=== PATIENT | male | born 1980 | race Two or more races ===

== ENCOUNTER 2018-11-15 20:25 | Emergency (ER) | payer MEDICAID ==
[~2018-11-15] VITALS: Ht 188 cm; Wt 104.3 kg
[~2018-11-15 20:25] MED LIST: ACET300T4 PO; NAPR-223 PO
[2018-11-15 22:14] LABS: Basophils # (auto) 0 uL; Basophils % (auto) 0.2 % (0.0-2.0); Eosinophils # (auto) 0.1 uL; Eosinophils % (auto) 0.7 % (0.0-7.0); Hematocrit 41.6 % (41.0-53.0); Lymphocytes # (auto) 1.7 uL; Lymphocytes % (auto) 14.3 % (10.0-50.0); Mean Corpuscular Hemoglobin 29.4 pg (28.0-32.0); Mean Corpuscular Hgb Conc. 33.6 g/dL (32.0-36.0); Mean Corpuscular Volume 87.5 fL (80.0-100.0); Monocytes # (auto) 0.9 uL; Monocytes % (auto) 7.9 % (0.0-12.0); Neutrophils # (auto) 9.3 uL; Neutrophils % (auto) 76.9 % (37.0-80.0); Platelet Count (auto) 336 10^3/uL (140-450); Red Blood Cells 4.76 10^6/uL (4.5-5.90); Red Cell Distribution Width 14.2 % (11.8-14.3)
[2018-11-15 22:30] LABS: Chloride 100 mmol/L (98-107); Potassium 3.4 mmol/L (3.5-5.1); Sodium 140 mmol/L (136-145)
[2018-11-15 22:38] LABS: Alanine Aminotransferase 14 U/L (16-61); Albumin 3.1 g/dL (3.4-5.0); Anion Gap 10 (5-15); Aspartate Aminotransferase 4 U/L (15-37); BUN/Creatinine Ratio 6.5; Blood Urea Nitrogen 7 mg/dL (7-18); Calcium 8.2 mg/dL (8.5-10.1); Carbon Dioxide 30 mmol/L (21-32); GFR African American 98 mL/min; GFR Non-African American 81 mL/min; Glucose 98 mg/dL (74-106)
[2018-11-15 22:47] LABS: Alkaline Phosphatase 86 U/L (45-117); Bilirubin, Total 0.5 mg/dL (0.2-1.0); Total Protein 7.7 g/dL (6.4-8.2)
[2018-11-16 07:51] LABS: Urine Bacteria NONE SEEN /hpf (None Seen); Urine Blood Negative /uL (Negative); Urine Mucus MANY (None Seen); Urine Specific Gravity 1.018 (1.001-1.035); Urine WBC 16 /hpf (0 - 3)
[2018-11-16] MEDS: SODIUM CHLORIDE 0.9% 500 ML IV ONE (08:12)
[2018-11-16] MEDS: SODIUM CHLORIDE 0.9% 1,000 ML IV ONE (08:20)
[2018-11-16] MEDS: METOCLOPRAMIDE HCL 5MG/ml INJ 2ml VIAL IV ONE (08:20)
[2018-11-16] MEDS: KETOROLAC TROMETH 15 mg/ml 1ML VL IV ONE (08:20)
[2018-11-16] MEDS: DexAMETHasone SOD PHOS 4 MG/1ML SDV INJ IV ONE (08:20)
[2018-11-16] MEDS: cefTRIAXone 1GM/50ML D5W 50 ML IV ONE (11:34)
[2018-11-16] MEDS: POTASSIUM EFFERVESENT TAB 25 MEQ PO ONE (11:34)
[2018-11-16] MEDS: IOHEXOL 350 MG/ML 100ML IJ ONE (15:25)
[2018-11-16 16:47] VITALS: BP 117/79
== END 2018-11-16 17:00 | disposition home or self-care (01) ==
LOC: ER 20:27
DX: M35.3 Polymyalgia rheumatica (principal); E87.6 Hypokalemia; J18.9 Pneumonia, unspecified organism; E44.1 Mild protein-calorie malnutrition; M10.9 Gout, unspecified; F17.210 Nicotine dependence, cigarettes, uncomplicated; Z68.29 Body mass index [BMI] 29.0-29.9, adult
CPT/HCPCS: 36415; 71046; 71275; 80053; 81001; 83735; 84550; 85025; 85379; 85652; 87040; 96365; 96375; 99284; J0696; J1100; J1885; J2765; J7030; J7040; Q9967

== ENCOUNTER 2020-02-28 18:54 | Emergency (ER) | payer MEDICAID ==
[~2020-02-28] VITALS: Ht 188 cm; Wt 117.9 kg
[2020-02-28 21:13] LABS: Basophils # (auto) 0 10 ^3/uL (0-0.2); Basophils % (auto) 0.2 % (0.0-2.0); Eosinophils # (auto) 0 10 ^3/uL (0-0.8); Eosinophils % (auto) 0.1 % (0.0-7.0); Hematocrit 50.5 % (41.0-53.0); Hemoglobin 17.1 g/dL (13.5-17.5); Lymphocytes # (auto) 2.3 10 ^3/uL (0.4-5.4); Lymphocytes % (auto) 19.3 % (10.0-50.0); Mean Corpuscular Hemoglobin 30.2 pg (28.0-32.0); Mean Corpuscular Hgb Conc. 33.8 g/dL (32.0-36.0); Mean Corpuscular Volume 89.4 fL (80.0-100.0); Monocytes % (auto) 8.4 % (0.0-12.0); Neutrophils # (auto) 8.4 10 ^3/uL (1.6-8.6); Nucleated Red Blood Cells % 0.1 %; Platelet Count (auto) 349 10^3/uL (140-450); Red Blood Cells 5.64 10^6/uL (4.5-5.90); Red Cell Distribution Width 14.8 % (11.8-14.3); White Blood Cell 11.7 10^3/uL (4.4-10.8)
[2020-02-28 21:30] LABS: Anion Gap 12 (5-15); Aspartate Aminotransferase 6 U/L (15-37); BUN/Creatinine Ratio 19.1; Blood Urea Nitrogen 26 mg/dL (7-18); Carbon Dioxide 19 mmol/L (21-32); Chloride 107 mmol/L (98-107); GFR African American 74 mL/min; GFR Non-African American 61 mL/min; Glucose 98 mg/dL (74-106); Sodium 138 mmol/L (136-145)
[2020-02-28 21:31] LABS: Alanine Aminotransferase 20 U/L (16-61); Albumin 4.8 g/dL (3.4-5.0); Amylase 39 U/L (25-115); Calcium 10.1 mg/dL (8.5-10.1); Lipase 191 U/L (73-393)
[2020-02-28 21:35] LABS: Alkaline Phosphatase 79 U/L (45-117); Bilirubin, Total 1.6 mg/dL (0.2-1.0); Total Protein 9.4 g/dL (6.4-8.2)
[2020-02-28] MEDS ORDERED: ONDANSETRON HCL 4 MG/2 ML VIAL ONE (21:56)
[2020-02-28] MEDS ORDERED: ONDANSETRON HCL 4 MG/2 ML VIAL IV ONE ×2 (22:00→22:30)
[2020-02-28 22:04] LABS: Urine WBC None Seen /hpf (0 - 3)
[2020-02-28 22:20] LABS: Urine Bacteria NONE SEEN /hpf (None Seen); Urine Blood Negative /uL (Negative); Urine Hyaline Cast MANY /lpf (0 - 2); Urine Mucus MANY (None Seen); Urine Specific Gravity 1.037 (1.001-1.035)
[2020-02-28] MEDS ORDERED: POTASSIUM CHL 20MEQ/100ML 100 ML IV ONE (22:30)
[2020-02-28] MEDS ORDERED: MORPHINE SULFATE 4 MG/ML SYR/VIAL IV ONE (22:30)
[2020-02-28] MEDS ORDERED: SODIUM CHLORIDE 0.9% 1,000 ML IV ONE ×2 (23:30→23:45)
[2020-02-29] MEDS ORDERED: HYDROmorphone HCL 2 MG/ML VL IV ONE (00:15)
[2020-02-29] MEDS ORDERED: PROMETHAZINE HCL 25 MG/ML 1ML IV ONE (00:15)
[2020-02-29] MEDS ORDERED: SODIUM CHLORIDE 0.9% 1,000 ML IV ONE (00:45)
[2020-02-29 01:01] VITALS: BP 110/56
[2020-02-29 03:44] LABS: Amphetamine Screen, Urine NEGATIVE (NEGATIVE); Barbiturate Scree,Urine NEGATIVE (NEGATIVE); Benzodiazephine Screen, Urine NEGATIVE (NEGATIVE); Cannabinoid Screen, Urine POSITIVE (NEGATIVE); Cocaine Screen, Urine NEGATIVE (NEGATIVE); Opiate Scree,Urine NEGATIVE (NEGATIVE); Phencyclidine Screen, Urine NEGATIVE (NEGATIVE)
== END 2020-02-29 03:25 | disposition home or self-care (01) ==
LOC: ER 18:55
DX: K52.9 Noninfective gastroenteritis and colitis, unspecified (principal)
CPT/HCPCS: 36415; 74176; 76705; 80053; 80307; 80320; 81001; 82150; 82962; 83605; 83690; 84484; 85025; 93005; 96361; 96374; 96375; 99285; J1170; J2270; J2405; J2550; J3480

== ENCOUNTER 2021-09-29 09:14 | Emergency (ER) | payer MEDICAID ==
[~2021-09-29] VITALS: Ht 188 cm; Wt 108.9 kg
[2021-09-29 10:21] VITALS: BP 124/80
[2021-09-29] MEDS ORDERED: methylPREDNISolone SOD SUCC 125 MG/2 ML VL IM ONE (10:30)
[2021-09-29] MEDS ORDERED: KETOROLAC TROMETH 60MG/2ML VIAL IM ONE (10:30)
[2021-09-29] MEDS ORDERED: IBUP800T27 PO (10:32)
[2021-09-29] MEDS ORDERED: PRED20TA2 PO (10:32)
== END 2021-09-29 10:46 | disposition home or self-care (01) ==
LOC: ER 09:14
DX: M10.9 Gout, unspecified (principal); F17.210 Nicotine dependence, cigarettes, uncomplicated
CPT/HCPCS: 36415; 84550; 96372; 99284; J1885; J2930

== ENCOUNTER 2022-01-16 19:21 | Emergency (ER) | payer MEDICAID ==
[~2022-01-16] VITALS: Ht 188 cm; Wt 109.0 kg
[~2022-01-16 19:21] MED LIST changes: +IBUP800T27 PO; +PRED20TA2 PO
[2022-01-16 19:22] VITALS: BP 119/62
[2022-01-16] MEDS ORDERED: methylPREDNISolone SOD SUCC 125 MG/2 ML VL IM ONE (22:45)
[2022-01-16] MEDS ORDERED: KETOROLAC TROMETH 30 MG/ML 1ML VIAL IM ONE (22:45)
[2022-01-16] MEDS ORDERED: COLC0.6T56 PO (22:51)
[2022-01-16] MEDS ORDERED: INDO25CA17 PO (22:51)
== END 2022-01-16 23:29 | disposition home or self-care (01) ==
LOC: ER 19:21
DX: M10.9 Gout, unspecified (principal); F17.210 Nicotine dependence, cigarettes, uncomplicated; Z79.1 Long term (current) use of non-steroidal anti-inflammatories (NSAID); Z79.899 Other long term (current) drug therapy
CPT/HCPCS: 96372; 99284; J1885; J2930

== ENCOUNTER → 2024-02-01 | Outpatient (CLI) | payer MEDICAID ==
[~2024-02-01] MED LIST changes: -ACET300T4 PO; +ACET300T58 PO; +COLC0.6T56 PO; +IBUP-1456 PO; -IBUP800T27 PO; +INDO-34 PO
[2024-02-01 12:31] LABS: Basophils # (auto) 0 10 ^3/uL (0-0.2); Basophils % (auto) 0.7 % (0.0-2.0); Eosinophils # (auto) 0.1 10 ^3/uL (0-0.8); Eosinophils % (auto) 1.5 % (0.0-7.0); Hematocrit 45.7 % (41.0-53.0); Hemoglobin 15.6 g/dL (13.5-17.5); Lymphocytes # (auto) 1.8 10 ^3/uL (0.4-5.4); Lymphocytes % (auto) 31.6 % (10.0-50.0); Mean Corpuscular Hemoglobin 30.4 pg (28.0-32.0); Mean Corpuscular Hgb Conc. 34.2 g/dL (32.0-36.0); Mean Corpuscular Volume 88.9 fL (80.0-100.0); Monocytes # (auto) 0.3 10 ^3/uL (0-1.3); Monocytes % (auto) 5.5 % (0.0-12.0); Neutrophils # (auto) 3.4 10 ^3/uL (1.6-8.6); Neutrophils % (auto) 60.7 % (37.0-80.0); Nucleated Red Blood Cells % 0.1 %; Platelet Count (auto) 235 10^3/uL (140-450); Red Blood Cells 5.14 10^6/uL (4.5-5.90); Red Cell Distribution Width 15.1 % (11.8-14.3); White Blood Cell 5.6 10^3/uL (4.4-10.8)
[2024-02-01 13:03] LABS: Alanine Aminotransferase 14 U/L (7-40); Albumin 4.5 g/dL (3.2-4.8); Alkaline Phosphatase 86 U/L (46-116); Anion Gap 6 (5-15); Aspartate Aminotransferase < 8 U/L (13-40); BUN/Creatinine Ratio 12.5 (10.0-20.0); Blood Urea Nitrogen 10 mg/dL (9-23); Calcium 9.9 mg/dL (8.7-10.4); Carbon Dioxide 27 mmol/L (20-30); Chloride 109 mmol/L (98-107); Cholesterol 174 mg/dL (< 200); Glucose 92 mg/dL (74-106); LDL Cholesterol 120 mg/dL (< 100); Potassium 4.6 mmol/L (3.5-5.1); Sodium 142 mmol/L (136-145); Triglycerides 95 mg/dL (< 150)
[2024-02-01 13:04] LABS: Bilirubin, Total 0.7 mg/dL (0.2-1.0); HDL Cholesterol 46 mg/dL (40-59); Total Protein 7.5 g/dL (5.7-8.2)
[2024-02-01 21:11] LABS: Urine Blood Negative /uL (Negative); Urine Clarity Clear (Clear); Urine Color Yellow (Yellow); Urine Mucus FEW (None Seen); Urine Protein, UAD Negative (Negative); Urine Specific Gravity 1.024 (1.001-1.035); Urine Urobilinogen Normal (Negative); Urine pH 5.5 (5.0-9.0)
== END | disposition home or self-care (01) ==
LOC: LAB 12:08
PROVIDERS: ATTEND Student in an Organized Health Care Education/Training Program
DX: N52.9 Male erectile dysfunction, unspecified (principal); R33.9 Retention of urine, unspecified; R03.0 Elevated blood-pressure reading, without diagnosis of hypertension; R73.9 Hyperglycemia, unspecified
CPT/HCPCS: 36415; 80053; 80061; 81001; 83036; 84153; 84403; 84443; 85025; 87086

== ENCOUNTER 2024-07-13 08:58 | Emergency (ER) | payer MEDICAID ==
[~2024-07-13] VITALS: Ht 188 cm; Wt 111.4 kg
[2024-07-13 09:09] VITALS: BP 160/108; PULSE 82; RESP 16; TEMP 98.9; O2SAT 96
--- NOTE | 2024-07-13 09:27 | ED.PDOC ---
Eye-HPI HPI Comments A 44 YEAR OLD MALE PRESENTS TO THE ED WITH CHIEF COMPLAINT OF SORE THROAT. PATIENT REPORTS THAT HE HAS BEEN EXPERIENCING AN INTERMITTENT SORE THROAT FOR THE 2 WEEKS WITH SOME BLOOD BEING SPIT UP. WHEN EATING, HE C/O DIFFICULTY SWALLOWING. PATIENT DENIES ANY FEVER, CHILLS, COUGH, HEADACHE, DIZZINESS, EAR PAIN, OR N/V. NO OTHER SYMPTOMS REPORTED AT THIS TIME OF CARE. Chief Complaint: Sore Throat Time Seen by MD: 09:25 Primary Care Provider: SUMMER Reviewed Notes: Nurses Notes, Medications, Allergies Allergies: Coded Allergies: NO KNOWN ALLERGIES (Unverified , 09/25/15) Home Meds Active Scripts Lidocaine HCl (Mouth-Throat) (Lidocaine HCl Viscous) 2 % Vielka, 10 ML MT TID, #120 ML Prov:ANA ROWLAND 07/13/24 Penicillin V Potassium (Veetids) 500 Mg Tab, 1 TAB PO QID, #28 TAB Prov:ANA ROWLAND 07/13/24 Colchicine (COLCRYS TABLET) 0.6 Mg Tb, 0.6 MG PO BID PRN, #10 TAB Prov:MATT EDDY 01/16/22 Indomethacin (Indocin) 25 Mg Cp, 1 CAP PO BID PRN, #28 CAP Prov:MATT EDDY 01/16/22 Prednisone (Prednisone) 20 Mg Tab, 2 TAB PO DAILY for 5 Days, #10 MG 0 Refills Prov:ROMULO TOMLINSON 09/29/21 Ibuprofen (Ibuprofen) 800 Mg Tab, 1 TAB PO TID PRN, #30 TAB 0 Refills Prov:ROMULO TOMLINSON 09/29/21 Reported Medications Naproxen (Naprosyn) 500 Mg Tab, 1 TAB PO BID, #60 TAB 1 Refill 09/26/15 Acetaminophen W/ Codeine (Tylenol #4 W/Codeine) 1 Tab Tb, 1 TAB PO 09/26/15 Information Source: Patient Mode of Arrival: Ambulatory Timing: Days Duration: Since onset Prehospital treatment: None Quality: Pain, Red Conjunctiva: Normal Cornea: Normal Pupils: Normal EOM: Normal Fundus: Normal Slit lamp exam: Normal Anterior chamber: Normal Mouth Location: Pharynx Oropharynx: Tonsillar hypertrophy, Red Onset: Spontaneous Throat Exposed to: None History of: None Associated signs and symptoms: Sore Throat Past Medical History PAST MEDICAL HISTORY: Gout Surgical History: Denies all surgeries Family History Family History: No family hx of HTN Social History Smoker: Cigarettes, Less Than 1 Pack/Day Alcohol: Rarely Drugs: Denies Drug Use Lives In: Home Constitutional: denies: chills, diaphoresis, fatigue, fever, malaise, sweats, weakness, others EENTM: reports: throat pain, throat swelling, voice changes; denies: blurred vision, double vision, ear bleeding, ear discharge, ear drainage, ear pain, ear ringing, eye pain, eye redness, hearing loss, mouth pain, mouth swelling, nasal discharge, nose bleeding, nose congestion, nose pain, photophobia, tearing, others Respiratory: denies: cough, hemoptysis, orthopnea, SOB at rest, shortness of breath, SOB with excertion, stridor, wheezing, others Cardiovascular: denies: chest pain, dizzy spells, diaphoresis, Dyspnea on exertion, edema, irregular heart beat, left arm pain, lightheadedness, palpitations, PND, syncope, others Gastrointestinal: denies: abdomen distended, abdominal pain, blood streaked bowels, constipated, diarrhea, dysphagia, difficulty swallowing, hematemesis, melena, nausea, poor appetite, poor fluid intake, rectal bleeding, rectal pain, vomiting, others Genitourinary: denies: burning, dysuria, flank pain, frequency, hematuria, incontinence, penile discharge, penile sore, pain, testicle pain, testicle swelling, urgency, others Neurological: denies: dizziness, fainting, headache, left sided numbness, left sided weakness, numbness, paresthesia, pre-existing deficit, right sided numbness, right sided weakness, seizure, speech problems, tingling, tremors, weakness, others Musculoskeletal: denies: back pain, gout, joint pain, joint swelling, muscle pain, muscle stiffness, neck pain, others Integumetry: denies: bruises, change in color, change in hair/nails, dryness, laceration, lesions, lumps, rash, wounds, others Allergic/Immunocompromised: denies: Difficulty Healing, Frequent Infections, Hives, Itching, others Hematologic/Lymphatic: denies: anemia, blood clots, easy bleeding, easy bruising, swollen glands, others Endocrine: denies: excessive hunger, excessive sweating, excessive thirst, excessive urination, flushing, intolerance to cold, intolerance to heat, unexplained weight gain, unexplained weight loss, others Psychiatric: denies: anxiety, bipolar disorder, depression, hopeless, panic di sorder, schizophrenia, sleepless, suicidal, others All Other Systems: Reviewed and Negative Physical Exam General Appearance: No Apparent Distress, Normal HEENT: PERRL/EOMI, Pharyngeal Erythema (TONSILLAR SWELLING WITH MILD EXUDATES. ), TMs Normal, Tonsillar Exudate Neck: Full Range of Motion, Lymphadenopathy (L), Normal Inspection, Supple Respiratory: Chest Non-Tender, Lungs Clear, No Accessory Muscle Use, No Respiratory Distress, Normal Breath Sounds Cardiovascular: No Edema, No JVD, No Murmur, No Gallop, Normal Peripheral Pulses, Regular Rate/Rhythm Breast Exam: Deferred Gastrointestinal: No Organomegaly, Non Tender, No Pulsatile Mass, Normal Bowel Sounds, Soft Genitalia: Deferred Pelvic: Deferred Rectal: Deferred Extremities: No calf tenderness, Normal capillary refill, Normal inspection, Normal range of motion, Non-tender, No pedal edema Musculoskeletal : Apperance: Normal Neurologic: Alert, mannequin decorator II-XII nml as Tested, No Motor Deficits, Normal Affect, Normal Mood, No Sensory Deficits Cerebellar Function: Normal Reflexes: Normal Skin: Dry, Normal Color, Warm Peripheral Pulses: 2+ carotid (R), 2+ carotid (L) Lymphatic: Cervical Adenopathy (L) Was a procedure done? Was a procedure done?: No EENT DIFF Eye: N/A Ear: Otitis Media, Pharyngitis, N/A Nose: N/A Mouth: N/A Sore Throat: Pharyngitis, Streptococcal, Viral Pharyngitis X-Ray, Labs, Meds, VS Vital Signs Date Time Temp Pulse Resp B/P (MAP) Pulse Ox O2 Delivery O2 Flow Rate FiO2 07/13/24 09:09 82 16 96 Room Air 07/13/24 09:09 98.9 82 16 160/108 (125) 96 98.9 07/13/24 09:08 98.9 82 16 160/108 (125) 96 Lab Test 07/13/24 09:30 Range/Units Group A Streptococcus Rapid Positive Current Medications Medications (Trade) Dose Ordered Sig/Meliza Route Start Time Stop Time Status Last Admin Methylprednisolone Sodium Succinate (Solu Medrol) 125 mg ONCE ONCE IM 07/13/24 09:30 07/13/24 09:31 DC 07/13/24 09:44 Ceftriaxone Sodium (Rocephin) 1,000 mg ONCE ONCE IM 07/13/24 09:30 07/13/24 09:31 DC 07/13/24 09:44 X-Ray, Labs, Meds, VS Comment EXTERNAL MEDICAL RECORDS REVIEWED: [NONE] INDEPENDENT HISTORIANS: SOCIAL DETERMINANTS OF HEALTH: [NONE] LABS ORDERED: STREP SWAB: POSITIVE STREP REVIEWED AND INTERPRETED RESULTS: NONE IMAGING ORDERED: NONE TREATMENTS ORDERED: ROCEPHIN 1G IM, SOLU-MEDROL 125MG IM PROCEDURES PERFORMED: NONE CRITICAL CARE TIME: NONE I HAVE DISCUSSED THE PATIENT WITH THE ATTENDING PHYSICIAN DR. VALDOVINOS AND HE AGREES WITH THE PATIENT'S PLAN OF CARE AND DISPOSITION. BASED ON HISTORY OF PRESENT ILLNESS, AND PHYSICAL EXAM, PATIENT WILL BE DISCHARGED HOME. DISCUSSED PLAN FOR DISCHARGE HOME WITH RX. MEDICATION WARNINGS GIVEN. SHARED DECISION MAKING: DISCUSSED WITH PATIENT THAT THEIR WORKUP WAS NORMAL. PATIENT INSTRUCTED TO FOLLOW UP WITH PRIMARY CARE PROVIDER IN 1-2 DAYS FOR RE- EVALUATION OF SYMPTOMS. PATIENT VERBALIZES UNDERSTANDING TO RETURN TO ED FOR NEW OR WORSENING SYMPTOMS OR IF FOLLOW UP WITH PCP CANNOT BE OBTAINED. PATIENT FEELS COMFORTABLE GOING HOME AT THIS TIME. ALL QUESTIONS ADDRESSED AT TIME OF DISCHARGE. Time of 1ST Reevaluation: 10:24 Reevaluation 1ST: Improved Patient Education/Counseling: Diagnosis, Treatment, Need For Follow Up Family Education/Counseling: Diagnosis, Treatment, Need For Follow Up Medical Screening: No EMC Exist At This Time Departure 1 Departure Time of Disposition: 10:25 Impression: Primary Impression: Acute streptococcal tonsillitis Qualified Codes: J03.00 - Acute streptococcal tonsillitis, unspecified Disposition: HOME / SELF CARE / HOMELESS Condition: Stable Additional Instructions: FOLLOW-UP WITH PCP IN 1 TO 2 DAYS. TAKE MEDICATIONS PRESCRIBED. RETURN TO ED FOR ANY NEW OR WORSENING SYMPTOMS. e-Prescriptions Lidocaine HCl (Mouth-Throat) (Lidocaine HCl Viscous) 2 % Vielka 10 ML MT TID, #120 ML Prov: ANA ROWLAND 07/13/24 Penicillin V Potassium (Veetids) 500 Mg Tab 1 TAB PO QID, #28 TAB Prov: ANA ROWLAND 07/13/24 Discharged With: Self, Spouse Critical Care Note Critical Care Time?: No Stability Stability form required: No Heart Score Heart Score: Heart Score Response (Comments) Value History N/A 0 EKG N/A 0 Age N/A 0 Risk Factors N/A 0 Troponin N/A 0 Total 0 I personally scribed for AAN ROWLAND ([email or web address]) on 07/13/24 at 09:27. Electronically submitted by John Pond ([email or web address]). I personally scribed for ANA ROWLAND ([email or web address]) on 07/13/24 at 10:23. Electronically submitted by John Pond ([email or web address]). ANA ROWLAND Jul 13, 2024 09:27
[2024-07-13] MEDS: methylPREDNISolone SOD SUCC 125 MG/2 ML VL IM ONE (09:44)
[2024-07-13] MEDS: cefTRIAXone SOD 1,000 MG VL IM ONE (09:44)
[2024-07-13 10:20] LABS: Rapid Strep A Screen-Throat Positive
[2024-07-13] MEDS ORDERED: PENI500T2 PO (10:24)
[2024-07-13] MEDS ORDERED: LIDO2SOL26 MT (10:24)
== END 2024-07-13 10:26 | disposition home or self-care (01) ==
LOC: ER 08:58
DX: J03.00 Acute streptococcal tonsillitis, unspecified (principal); M10.9 Gout, unspecified; F17.210 Nicotine dependence, cigarettes, uncomplicated; Z79.52 Long term (current) use of systemic steroids; Z79.1 Long term (current) use of non-steroidal anti-inflammatories (NSAID); Z79.2 Long term (current) use of antibiotics; Z79.899 Other long term (current) drug therapy
CPT/HCPCS: 87880; 96372; 99284; J0696; J2919

== ENCOUNTER 2024-11-30 10:57 | Outpatient (CLI) | payer MEDICAID ==
[~2024-11-30 10:57] MED LIST changes: +LIDO2SOL26 MT; +PENI500T2 PO
[2024-11-30 11:41] LABS: Hematocrit 48.3 % (41.0-53.0); Hemoglobin 16.4 g/dL (13.5-17.5); Mean Corpuscular Hemoglobin 30.3 pg (28.0-32.0); Mean Corpuscular Volume 88.9 fL (80.0-100.0); Nucleated Red Blood Cells % 0.0 %
[2024-11-30 11:55] LABS: Alanine Aminotransferase 16 U/L (7-40); Alkaline Phosphatase 92 U/L (46-116); Anion Gap 8 (5-15); BUN/Creatinine Ratio 10.4 (10.0-20.0); Blood Urea Nitrogen 10 mg/dL (9-23); Calcium 10.5 mg/dL (8.7-10.4); Carbon Dioxide 27 mmol/L (20-31); Chloride 106 mmol/L (98-107); Glucose 94 mg/dL (74-106); Potassium 5.0 mmol/L (3.5-5.1); Sodium 141 mmol/L (136-145); Total Protein 7.8 g/dL (5.7-8.2); Triglycerides 159 mg/dL (< 150)
[2024-11-30 11:56] LABS: Albumin 4.7 g/dL (3.2-4.8); Bilirubin, Total 0.7 mg/dL (0.2-1.0); HDL Cholesterol 41 mg/dL (40-59)
[2024-11-30 11:57] LABS: Cholesterol 215 mg/dL (< 200)
== END 2024-11-30 17:00 | disposition home or self-care (01) ==
LOC: LAB 10:57
PROVIDERS: ATTEND Student in an Organized Health Care Education/Training Program
DX: E55.9 Vitamin D deficiency, unspecified (principal); E78.5 Hyperlipidemia, unspecified; R73.9 Hyperglycemia, unspecified; R03.0 Elevated blood-pressure reading, without diagnosis of hypertension
CPT/HCPCS: 36415; 80053; 80061; 82306; 83036; 84443; 85025

== ENCOUNTER 2024-12-26 10:37 | Emergency (ER) | payer MEDICAID ==
[~2024-12-26] VITALS: Ht 188 cm; Wt 109.0 kg
[2024-12-26 10:39] VITALS: TEMP 97.2
--- NOTE | 2024-12-26 10:53 | ED.PDOC ---
GI ASSESSMENT HPI Comments 44 y/o M, with no prior medical history presents to the ED for CC of abdominal pain. Patient states, he has been experiencing diffuse abdominal pain with associated symptoms of nausea, vomiting, and diarrhea sudden onset, Wednesday (12/23/24). Patient denies melena, fever, chills, weakness, or fatigue. No other symptoms or modifying factors present at this time. Chief Complaint: Abdominal Pain Time Seen by MD: 10:55 Primary Care Provider: SUMMER Reviewed Notes: Nurses Notes, Medications, Allergies Allergies: Coded Allergies: NO KNOWN ALLERGIES (Unverified , 09/25/15) Home Meds Active Scripts Lidocaine HCl (Mouth-Throat) (Lidocaine HCl Viscous) 2 % Vielka, 10 ML MT TID, #120 ML Prov:ANA ROWLAND 07/13/24 Penicillin V Potassium (Veetids) 500 Mg Tab, 1 TAB PO QID, #28 TAB Prov:ANA ROWLAND 07/13/24 Colchicine (COLCRYS TABLET) 0.6 Mg Tb, 0.6 MG PO BID PRN, #10 TAB Prov:MATT EDDY 01/16/22 Indomethacin (Indocin) 25 Mg Cp, 1 CAP PO BID PRN, #28 CAP Prov:MATT EDDY 01/16/22 Prednisone (Prednisone) 20 Mg Tab, 2 TAB PO DAILY for 5 Days, #10 MG 0 Refills Prov:ROMULO TOMLINSON 09/29/21 Ibuprofen (Ibuprofen) 800 Mg Tab, 1 TAB PO TID PRN, #30 TAB 0 Refills Prov:ROMULO TOMLINSON 09/29/21 Reported Medications Naproxen (Naprosyn) 500 Mg Tab, 1 TAB PO BID, #60 TAB 1 Refill 09/26/15 Acetaminophen W/ Codeine (Tylenol #4 W/Codeine) 1 Tab Tb, 1 TAB PO 09/26/15 Information Source: Patient Mode of Arrival: Ambulatory Timing: Days Duration: Since onset Prehospital treatment: None Vomitus: Watery Stool: Watery Severity: Moderate Recent: None Recent Hx of: None Pain Location: Diffuse Modifying Factors: Nothing Associated sign and symptoms: Nausea, Vomiting, Diarrhea, Abdominal Pain Past Medical History PAST MEDICAL HISTORY: Gout Surgical History: Denies all surgeries Family History Family History: No family hx of HTN Social History Smoker: Cigarettes, Less Than 1 Pack/Day Alcohol: Rarely Drugs: Denies Drug Use Lives In: Home Constitutional: denies: chills, diaphoresis, fatigue, fever, malaise, sweats, weakness, others EENTM: denies: blurred vision, double vision, ear bleeding, ear discharge, ear drainage, ear pain, ear ringing, eye pain, eye redness, hearing loss, mouth pain, mouth swelling, nasal discharge, nose bleeding, nose congestion, nose pain, photophobia, tearing, throat pain, throat swelling, voice changes, others Respiratory: denies: cough, hemoptysis, orthopnea, SOB at rest, shortness of breath, SOB with excertion, stridor, wheezing, others Cardiovascular: denies: chest pain, dizzy spells, diaphoresis, Dyspnea on exertion, edema, irregular heart beat, left arm pain, lightheadedness, palpitations, PND, syncope, others Gastrointestinal: reports: abdominal pain, diarrhea, nausea, vomiting; denies: abdomen distended, blood streaked bowels, constipated, dysphagia, difficulty swallowing, hematemesis, melena, poor appetite, poor fluid intake, rectal bleeding, rectal pain, others Genitourinary: denies: burning, dysuria, flank pain, frequency, hematuria, incontinence, penile discharge, penile sore, pain, testicle pain, testicle swelling, urgency, others Neurological: denies: dizziness, fainting, headache, left sided numbness, left sided weakness, numbness, paresthesia, pre-existing deficit, right sided numbness, right sided weakness, seizure, speech problems, tingling, tremors, weakness, others Musculoskeletal: denies: back pain, gout, joint pain, joint swelling, muscle pain, muscle stiffness, neck pain, others Integumetry: denies: bruises, change in color, change in hair/nails, dryness, laceration, lesions, lumps, rash, wounds, others Allergic/Immunocompromised: denies: Difficulty Healing, Frequent Infections, Hives, Itching, others Hematologic/Lymphatic: denies: anemia, blood clots, easy bleeding, easy bruising, swollen glands, others Endocrine: denies: excessive hunger, excessive sweating, excessive thirst, excessive urination, flushing, intolerance to cold, intolerance to heat, unexpl ained weight gain, unexplained weight loss, others Psychiatric: denies: anxiety, bipolar disorder, depression, hopeless, panic disorder, schizophrenia, sleepless, suicidal, others All Other Systems: Reviewed and Negative Physical Exam General Appearance: Moderate Distress HEENT: Normal ENT Inspection, Pharynx Normal, TMs Normal Neck: Full Range of Motion, Non-Tender, Normal, Normal Inspection Respiratory: Chest Non-Tender, Lungs Clear, No Accessory Muscle Use, No Respiratory Distress, Normal Breath Sounds Cardiovascular: No Edema, No JVD, No Murmur, No Gallop, Normal Peripheral Pulses, Regular Rate/Rhythm Breast Exam: Deferred Gastrointestinal: No Organomegaly, Non Tender, No Pulsatile Mass, Normal Bowel Sounds, Soft Genitalia: Deferred Pelvic: Deferred Rectal: Deferred Extremities: No calf tenderness, Normal capillary refill, Normal inspection, Normal range of motion, Non-tender, No pedal edema Musculoskeletal : Apperance: Normal Neurologic: Alert, woods warden II-XII nml as Tested, No Motor Deficits, Normal Affect, Normal Mood, No Sensory Deficits Cerebellar Function: Normal Reflexes: Normal Skin: Dry, Normal Color, Warm Peripheral Pulses: 3+ Radial (R), 3+ Radial (L) Lymphatic: No Adenopathy Was a procedure done? Was a procedure done?: No GI differential Dx Differential Diagnosis: Constipation, Diverticular disease, Esophagitis, Gastritis/PUD, Gastroenteritis, Electrolyte Imbalance, Food Poisoning, Bacterial, Viral X-Ray, Labs, Meds, VS Vital Signs Date Time Temp Pulse Resp B/P (MAP) Pulse Ox O2 Delivery O2 Flow Rate FiO2 12/26/24 13:12 67 19 160/108 12/26/24 11:32 69 18 98 Room Air 12/26/24 11:32 69 18 165/110 (128) 98 12/26/24 11:26 67 19 165/110 12/26/24 10:39 97.2 106 18 124/73 96 97.2 Lab Test 12/26/24 11:11 Range/Units White Blood Count 8.5 4.4-10.8 10^3/uL Red Blood Count 5.41 4.5-5.90 10^6/uL Hemoglobin 16.4 13.5-17.5 g/dL Hematocrit 47.6 41.0-53.0 % Mean Corpuscular Volume 88.0 80.0-100.0 fL Mean Corpuscular Hemoglobin 30.4 28.0-32.0 pg Mean Corpuscular Hemoglobin Concent 34.5 32.0-36.0 g/dL Red Cell Distribution Width 15.2 H 11.8-14.3 % Platelet Count 260 140-450 10^3/uL Mean Platelet Volume 7.9 6.9-10.8 fL Neutrophils (%) (Auto) 79.5 37.0-80.0 % Lymphocytes (%) (Auto) 15.9 10.0-50.0 % Monocytes (%) (Auto) 3.6 0.0-12.0 % Eosinophils (%) (Auto) 0.5 0.0-7.0 % Basophils (%) (Auto) 0.5 0.0-2.0 % Neutrophils # (Auto) 6.8 1.6-8.6 10 ^3/uL Lymphocytes # (Auto) 1.4 0.4-5.4 10 ^3/uL Monocytes # (Auto) 0.3 0-1.3 10 ^3/uL Eosinophils # (Auto) 0 0-0.8 10 ^3/uL Basophils # (Auto) 0 0-0.2 10 ^3/uL Nucleated Red Blood Cells 0.2 % Sodium Level 142 136-145 mmol/L Potassium Level 4.9 3.5-5.1 mmol/L Chloride Level 108 H 98-107 mmol/L Carbon Dioxide Level 24 20-31 mmol/L Anion Gap 10 5-15 Blood Urea Nitrogen 8 L 9-23 mg/dL Creatinine 0.99 0.700-1.30 mg/dL Glomerular Filtration Rate Calc 96 >90 mL/min BUN/Creatinine Ratio 8.1 L 10.0-20.0 Serum Glucose 113 H 74-106 mg/dL Calcium Level 10.3 8.7-10.4 mg/dL Current Medications Medications (Trade) Dose Ordered Sig/Meliza Route Start Time Stop Time Status Last Admin Ondansetron HCl (Zofran) 4 mg ONCE ONCE IV 12/26/24 11:00 12/26/24 11:02 DC 12/26/24 11:27 Hydromorphone HCl (Dilaudid Injection) 1 mg ONCE ONCE IV 12/26/24 11:00 12/26/24 11:02 DC 12/26/24 11:26 Prochlorperazine Edisylate (Compazine Inj) 10 mg ONCE ONCE IV 12/26/24 11:00 12/26/24 11:02 DC 12/26/24 11:[address] [address] Ph: [phone] DIAGNOSTIC IMAGING Diagnostic Imaging Report : [id number] Signed PATIENT: SHIRLEY JEAN ACCT: [id number] UNIT: [id number] : 1980 LOC: ER ROOM / BED: / AGE / SEX: 44 / M ADM STATUS: REG ER SERVICE 1100 ORDERING PHYSICIAN: JEANINE VALDOVINOS MD PROCEDURE(s): ABPL - CT AB PEL WO CON-NO ORAL OR IV REASON: enteritis ORDER NUMBER(s): [id number], ACCESSION NUMBER(s): [id number] EXAM: CT CT AB PEL WO CON-NO ORAL OR IV HISTORY: enteritis COMPARISON: CT ABD PELVIS WO CONTRAST on DOS: 02/28/20 TECHNIQUE: Helical CT images of the abdomen and pelvis were performed without IV contrast. Sagittal and coronal reformatted images were obtained. This CT exam was performed using one or more of the following dose reduction techniques: Automated exposure control, adjustment of the mA and/or kv according to patient size, or the use of iterative reconstruction techniques. Radiation Dose: Abdomen/Pelvis: CTDIvol 20.53 mGy, DLP 1315.92 mGy*cm. FINDINGS: CT abdomen: There is mild scarring or atelectasis in the lung bases. There is peribronchial thickening in the lung bases. The right hemidiaphragm is elevated.. The heart is not enlarged. The spleen measures 13.7 cm longitudinal. The noncontrast liver, gallbladder, pancreas, kidneys, and adrenal glands are unremarkable. No abdominal aortic aneurysm. There is a left upper quadrant splenule. There is a small fatty umbilical hernia. CT pelvis: No abnormal bowel dilatation, free air, or free fluid. The appendix and urinary bladder are unremarkable. The prostate is mildly enlarged. There are small fatty bilateral inguinal indirect hernias. There is severe lumbar degenerative disc disease and facet arthropathy. IMPRESSION: 1. Splenomegaly. 2. Mild prostatic enlargement. 3. Fatty umbilical hernia and bilateral fatty inguinal indirect hernias. 4. Advanced lumbar degenerative disc disease and facet arthropathy. Consider follow-up noncontrast MRI of the lumbar spine for better characterization on an outpatient nonemergent basis. 5. No evidence of bowel obstruction, acute appendicitis, or other acute process in the abdomen or pelvis. ATED BY: RASHAUN RIZZO MD DICTATED DATE/TIME: 12/26/24 1206 SIGNED BY: RASHAUN RIZZO MD SIGNED DATE/TIME: 12/26/24 1206 CC: Patient alert. Complaining of abdominal discomfort. Vitals stable. Answering all questions. No sign of distress. CT of the abdomen reviewed does not show any acute process. WBC within normal limits. Hemoglobin within normal limits. Explained to the patient. Continue monitoring. Time of 1ST Reevaluation: 11:25 Reevaluation 1ST: Unchanged Patient Education/Counseling: Diagnosis, Treatment Family Education/Counseling: No Family Present SEPSIS Sepsis Screen Date sepsis recognized/suspect: Dec 26, 2024 Time Sepsis recognized/suspect: 1042 Recent Procedure: No On Antibiotic Therapy: No Respiratory Rate >20: No Heart Rate >90: Yes Temp<36 C (96.8 F) or >38.3 C: No SBP <90 or MAP <65 mmHG: No New Acute Mental Status Change: No Is the patient on CPAP, BIPAP,: No Physician Orders Ct Ab Pel Wo Con-No Oral Or Iv (12/26/24 11:00) Vital Signs Date Time Temp Pulse Resp B/P (MAP) Pulse Ox O2 Delivery O2 Flow Rate FiO2 12/26/24 13:12 67 19 160/108 12/26/24 11:32 69 18 98 Room Air 12/26/24 11:32 69 18 165/110 (128) 98 12/26/24 11:26 67 19 165/110 12/26/24 10:39 97.2 106 18 124/73 96 97.2 Laboratory Tests Test 12/26/24 11:11 White Blood Count 8.5 10^3/uL (4.4-10.8) Medications Medications Dose Ordered Sig/Meliza Route Start Time Stop Time Status Last Admin Dose Admin Hydromorphone HCl 1 mg ONCE ONCE IV 12/26/24 11:00 12/26/24 11:02 DC 12/26/24 11:26 Ondansetron HCl 4 mg ONCE ONCE IV 12/26/24 11:00 12/26/24 11:02 DC 12/26/24 11:27 Prochlorperazine Edisylate 10 mg ONCE ONCE IV 12/26/24 11:00 12/26/24 11:02 DC 12/26/24 11:26 Departure 1 Departure Time of Disposition: 18:06 Impression: Primary Impression: Intractable abdominal pain Disposition: ADMITTED INPATIENT Admit to: Med Surg Condition: Guarded Critical Care Note Critical Care Time?: No Stability Stability form required: No Heart Score Heart Score: Heart Score Response (Comments) Value History N/A 0 EKG N/A 0 Age N/A 0 Risk Factors N/A 0 Troponin N/A 0 Total 0 I personally scribed for JEANINE VALDOVINOS MD ([email or web address]) on 12/26/24 at 10:53. Electronically submitted by Shawanda Reeves ([email or web address]). I personally scribed for JEANINE VALDOVINOS MD ([email or web address]) on 12/26/24 at 11:15. Electronically submitted by Shawanda Reeves ([email or web address]). I personally scribed for JEANINE VALDOVINOS MD ([email or web address]) on 12/26/24 at 12:43. Electronically submitted by Shawanda Reeves ([email or web address]). JEANINE VALDOVINOS MD Dec 26, 2024 10:53
[2024-12-26 11:21] LABS: Hematocrit 47.6 % (41.0-53.0); Hemoglobin 16.4 g/dL (13.5-17.5); Mean Corpuscular Hemoglobin 30.4 pg (28.0-32.0); Mean Corpuscular Volume 88.0 fL (80.0-100.0); Nucleated Red Blood Cells % 0.2 %
[2024-12-26] MEDS: HYDROmorphone HCL 2 MG/ML VL/or syr IV ONE (11:26)
[2024-12-26] MEDS: PROCHLORPERAZINE EDISYLATE 5 MG/ML 2ML VIAL IV ONE (11:26)
[2024-12-26] MEDS: ONDANSETRON HCL 4 MG/2 ML VIAL IV ONE (11:27)
[2024-12-26 11:28] LABS: Potassium 4.9 mmol/L (3.5-5.1); Sodium 142 mmol/L (136-145)
[2024-12-26 11:29] LABS: Anion Gap 10 (5-15); Carbon Dioxide 24 mmol/L (20-31)
[2024-12-26 11:30] LABS: Calcium 10.3 mg/dL (8.7-10.4); Chloride 108 mmol/L (98-107)
[2024-12-26 11:32] VITALS: O2SAT 98
[2024-12-26 11:35] LABS: BUN/Creatinine Ratio 8.1 (10.0-20.0)
[2024-12-26 11:38] LABS: Blood Urea Nitrogen 8 mg/dL (9-23); Glucose 113 mg/dL (74-106)
--- NOTE | 2024-12-26 12:08 | DVH ---
EXAM: CT CT AB PEL WO CON-NO ORAL OR IV HISTORY: enteritis COMPARISON: CT ABD PELVIS WO CONTRAST on DOS: 02/28/20 TECHNIQUE: Helical CT images of the abdomen and pelvis were performed without IV contrast. Sagittal a nd coronal reformatted images were obtained. This CT exam was performed using one or more of the foll owing dose reduction techniques: Automated exposure control, adjustment of the mA and/or kv according to patient size, or the use of iterative reconstruction techniques. Radiation Dose: Abdomen/Pelvis: CTDIvol 20.53 mGy, DLP 1315.92 mGy*cm. FINDINGS: CT abdomen: There is mild scarring or atelectasis in the lung bases. There is peribronchial thickenin g in the lung bases. The right hemidiaphragm is elevated.. The heart is not enlarged. The spleen renae ures 13.7 cm longitudinal. The noncontrast liver, gallbladder, pancreas, kidneys, and adrenal glands are unremarkable. No abdominal aortic aneurysm. There is a left upper quadrant splenule. There is a s mall fatty umbilical hernia. CT pelvis: No abnormal bowel dilatation, free air, or free fluid. The appendix and urinary bladder ar e unremarkable. The prostate is mildly enlarged. There are small fatty bilateral inguinal indirect he rnias. There is severe lumbar degenerative disc disease and facet arthropathy. IMPRESSION: 1. Splenomegaly. 2. Mild prostatic enlargement. 3. Fatty umbilical hernia and bilateral fatty inguinal indirect hernias. 4. Advanced lumbar degenerative disc disease and facet arthropathy. Consider follow-up noncontrast M RI of the lumbar spine for better characterization on an outpatient nonemergent basis. 5. No evidence of bowel obstruction, acute appendicitis, or other acute process in the abdomen or pel vis.
[2024-12-26 13:12] VITALS: BP 160/108; PULSE 67; RESP 19
== END 2024-12-26 13:28 | disposition left against medical advice (07) ==
LOC: EEVIPCON 10:37 → ER 10:37
DX: R10.84 Generalized abdominal pain (principal); R11.2 Nausea with vomiting, unspecified; F17.210 Nicotine dependence, cigarettes, uncomplicated; Z79.899 Other long term (current) drug therapy
CPT/HCPCS: 36415; 74176; 80048; 85025; 96374; 96375; 99285; J0780; J1171; J2405

== ENCOUNTER 2025-04-02 13:58 | Emergency (ER) | payer MEDICAID ==
[~2025-04-02] VITALS: Ht 177.8 cm; Wt 102.7 kg
--- NOTE | 2025-04-02 14:27 | ED.PDOC ---
Eye-HPI HPI Comments This is a 45 year old male presenting to the ED with chief complaint of ear pain. Patient reports that he has been experiencing left sided ear pain for the past few days after swimming recently. Patient relays that he is able to easily get ear infections after swimming. Denies blunt trauma (hand blow to the ear, fall, direct hit) Denies penetrating trauma (Q-tip use, match-stick, gunshot wound, welding spark) Denies ear trauma Denies barotrauma Denies blast injury Denies air travel Denies scuba diving Denies hearing loss Denies persistent ringing in the ear Denies fever chills night sweats unintentional weight loss Denies nausea vomiting severe headache or recent vision changes Chief Complaint: Earache Time Seen by MD: 14:26 Primary Care Provider: SUMMER Reviewed Notes: Nurses Notes, Medications, Allergies Allergies: Coded Allergies: NO KNOWN ALLERGIES (Unverified , 09/25/15) Home Meds Active Scripts Amoxicillin & Pot Clavulanate (AUGMENTIN TABLET) 875 Mg Tb, 875 MG PO BID for 7 Days, #14 TAB 0 Refills Prov:RIAT CLEMENS CLAIMS ADJUSTOR 04/02/25 Lidocaine HCl (Mouth-Throat) (Lidocaine HCl Viscous) 2 % Vielka, 10 ML MT TID, #120 ML Prov:ANA ROWLAND 07/13/24 Penicillin V Potassium (Veetids) 500 Mg Tab, 1 TAB PO QID, #28 TAB Prov:ANA ROWLAND 07/13/24 Colchicine (COLCRYS TABLET) 0.6 Mg Tb, 0.6 MG PO BID PRN, #10 TAB Prov:MATT MAI 01/16/22 Indomethacin (Indocin) 25 Mg Cp, 1 CAP PO BID PRN, #28 CAP Prov:MATT MAI 01/16/22 Prednisone (Prednisone) 20 Mg Tab, 2 TAB PO DAILY for 5 Days, #10 MG 0 Refills Prov:ROMULO TOMLINSON 09/29/21 Ibuprofen (Ibuprofen) 800 Mg Tab, 1 TAB PO TID PRN, #30 TAB 0 Refills Prov:ROMULO TOMLINSON 09/29/21 Reported Medications Naproxen (Naprosyn) 500 Mg Tab, 1 TAB PO BID, #60 TAB 1 Refill 09/26/15 Acetaminophen W/ Codeine (Tylenol #4 W/Codeine) 1 Tab Tb, 1 TAB PO 09/26/15 Information Source: Patient Mode of Arrival: Ambulatory Timing: Days Duration: Since onset Prehospital treatment: None Quality: Pain ENT Ear Exam: Cerumen Onset: Swimming Throat Exposed to: None History of: None Associated signs and symptoms: Ear Pain Past Medical History PAST MEDICAL HISTORY: Gout Surgical History: Denies all surgeries Family History Family History: Reviewed,noncontributory to illness, No family hx of HTN Social History Smoker: Cigarettes, Less Than 1 Pack/Day Alcohol: Rarely Drugs: Denies Drug Use Lives In: Home Constitutional: denies: chills, diaphoresis, fatigue, fever, malaise, sweats, weakness, others EENTM: reports: ear pain; denies: blurred vision, double vision, ear bleeding, ear discharge, ear drainage, ear ringing, eye pain, eye redness, hearing loss, mouth pain, mouth swelling, nasal discharge, nose bleeding, nose congestion, nose pain, photophobia, tearing, throat pain, throat swelling, voice changes, others Respiratory: denies: cough, hemoptysis, orthopnea, SOB at rest, shortness of breath, SOB with excertion, stridor, wheezing, others Cardiovascular: denies: chest pain, dizzy spells, diaphoresis, Dyspnea on exertion, edema, irregular heart beat, left arm pain, lightheadedness, palpitations, PND, syncope, others Gastrointestinal: denies: abdomen distended, abdominal pain, blood streaked bowels, constipated, diarrhea, dysphagia, difficulty swallowing, hematemesis, melena, nausea, poor appetite, poor fluid intake, rectal bleeding, rectal pain, vomiting, others Genitourinary: denies: burning, dysuria, flank pain, frequency, hematuria, incontinence, penile discharge, penile sore, pain, testicle pain, testicle swelling, urgency, others Neurological: denies: dizziness, fainting, headache, left sided numbness, left sided weakness, numbness, paresthesia, pre-existing deficit, right sided numbness, right sided weakness, seizure, speech problems, tingling, tremors, weakness, others Musculoskeletal: denies: back pain, gout, joint pain, joint swelling, muscle pain, muscle stiffness, neck pain, others Integumetry: denies: bruises, change in color, change in hair/nails, dryness, laceration, lesions, lumps, rash, wounds, others Allergic/Immunocompromised: denies: Difficulty Healing, Frequent Infections, Hives, Itching, others Hematologic/Lymphatic: denies: anemia, blood clots, easy bleeding, easy bruising, swollen glands, others Endocrine: denies: excessive hunger, excessive sweating, excessive thirst, excessive urination, flushing, intolerance to cold, intolerance to heat, unexplained weight gain, unexplained weight loss, others Psychiatric: denies: anxiety, bipolar disorder, depression, hopeless, panic di sorder, schizophrenia, sleepless, suicidal, others All Other Systems: Reviewed and Negative Physical Exam General Appearance: No Apparent Distress, Normal HEENT: Normal ENT Inspection, Pharynx Normal, TMs Normal Neck: Full Range of Motion, Non-Tender, Normal, Normal Inspection Respiratory: Chest Non-Tender, Lungs Clear, No Accessory Muscle Use, No Respiratory Distress, Normal Breath Sounds Cardiovascular: No Edema, No JVD, No Murmur, No Gallop, Normal Peripheral Pulses, Regular Rate/Rhythm Breast Exam: Deferred Gastrointestinal: No Organomegaly, Non Tender, No Pulsatile Mass, Normal Bowel Sounds, Soft Genitalia: Deferred Pelvic: Deferred Rectal: Deferred Extremities: No calf tenderness, Normal capillary refill, Normal inspection, Normal range of motion, Non-tender, No pedal edema Musculoskeletal : Apperance: Normal Neurologic: Alert, jammer hooker II-XII nml as Tested, No Motor Deficits, Normal Affect, Normal Mood, No Sensory Deficits Cerebellar Function: Normal Reflexes: Normal Skin: Dry, Normal Color, Warm Lymphatic: No Adenopathy Was a procedure done? Was a procedure done?: Yes Sedation Sedation?: No Other Procedure Procedure Ear lavage Indication Left ear pain and cerumen impaction Prep Saline Informed consent obtained: Yes Risks, benefits, and alternati: Yes EENT DIFF Eye: N/A Ear: Cerumen Impaction, Otitis Media X-Ray, Labs, Meds, VS Vital Signs Date Time Temp Pulse Resp B/P (MAP) Pulse Ox O2 Delivery O2 Flow Rate FiO2 04/02/25 16:00 98.2 86 16 126/92 (103) 100 98.2 04/02/25 16:00 86 17 100 Room Air 04/02/25 14:00 98.7 97 18 146/97 100 98.7 X-Ray, Labs, Meds, VS Comment Patient arrives alert and oriented, ABC's intact, afebrile, vital signs stable, saturating well in room air Exam findings consistent with impacted cerumen Risk and benefits were discussed with the pt including tympanic membrane perforation, hearing loss, otitis externa, vertigo, and minor canal abrasion if wax is adherent to the epithelium Verbally consented to the procedure Wax was removed with ear lavage system. Patient tolerated procedure well On reevaluation of ear, partial cerumen remained in canal. Advised to used OTC debrox and f/u in 1 wk SRP discussed Time of 1ST Reevaluation: 15:00 Reevaluation 1ST: Improved Patient Education/Counseling: Diagnosis, Treatment Family Education/Counseling: Diagnosis, Treatment SEPSIS Sepsis Screen Date sepsis recognized/suspect: Apr 02, 2025 Time Sepsis recognized/suspect: 1400 Recent Procedure: No On Antibiotic Therapy: No Respiratory Rate >20: No Heart Rate >90: No Temp<36 C (96.8 F) or >38.3 C: No SBP <90 or MAP <65 mmHG: No New Acute Mental Status Change: No Is the patient on CPAP, BIPAP,: No Vital Signs Date Time Temp Pulse Resp B/P (MAP) Pulse Ox O2 Delivery O2 Flow Rate FiO2 04/02/25 16:00 98.2 86 16 126/92 (103) 100 98.2 04/02/25 16:00 86 17 100 Room Air 04/02/25 14:00 98.7 97 18 146/97 100 98.7 Departure 1 Departure Time of Disposition: 15:23 Impression: Primary Impression: Cerumen impaction Qualified Codes: H61.23 - Impacted cerumen, bilateral Disposition: HOME / SELF CARE / HOMELESS Condition: Stable e-Prescriptions Amoxicillin & Pot Clavulanate (AUGMENTIN TABLET) 875 Mg Tb 875 MG PO BID for 7 Days, #14 TAB 0 Refills Prov: RITA CLEMENS CLAIMS ADJUSTOR 04/02/25 Discharged With: Self, Spouse Critical Care Note Critical Care Time?: No Stability Stability form required: No Heart Score Heart Score: Heart Score Response (Comments) Value History N/A 0 EKG N/A 0 Age N/A 0 Risk Factors N/A 0 Troponin N/A 0 Total 0 I personally scribed for RITA CLEMENS NP ([email or web address]) on 04/02/25 at 14:27. Electronically submitted by John Pond ([email or web address]). I personally scribed for RITA CLEMENS NP ([email or web address]) on 04/02/25 at 14:38. Electronically submitted by John Pond ([email or web address]). RITA CLEMENS NP Apr 02, 2025 14:27
[2025-04-02] MEDS ORDERED: AUG875T PO (15:43)
[2025-04-02 16:00] VITALS: BP 126/92; PULSE 86; RESP 17; TEMP 98.2; O2SAT 100
== END 2025-04-02 16:02 | disposition home or self-care (01) ==
LOC: ER 13:58
DX: H61.22 Impacted cerumen, left ear (principal); F17.210 Nicotine dependence, cigarettes, uncomplicated; M10.9 Gout, unspecified
CPT/HCPCS: 69209